=== PATIENT | female | born 2000 | race Caucasian/White ===

== ENCOUNTER 2020-05-03 19:32 | Emergency (ER) | payer OTHER, SELFPAY ==
--- NOTE | ~2020-05-03 | XR_ITS ---
EXAMINATION: XR abdomen/kub 1V DATE: 05/03/2020 21:12 INDICATION: Nausea and vomiting. TECHNIQUE: A supine view of the abdomen was obtained. COMPARISON: None. FINDINGS: There are no dilated loops of bowel. There is a 4 mm calcification in right abdomen overlyi ng the expected area of the proximal ureter. IMPRESSION: 1. 4 mm calcification in right abdomen overlying the expected area of the proximal ureter, which may be a ureteral stone or a phlebolith or a stool calcification. Reviewed, dictated and finalized at location A. IMPRESSION: 1. 4 mm calcification in right abdomen overlying the expected area of the proxi mal ureter, which may be a ureteral stone or a phlebolith or a stool calcificat ion.
--- NOTE | ~2020-05-03 | XR_ITS ---
EXAMINATION: XR chest 1V portable DATE: 05/03/2020 21:13 INDICATION: Nausea and vomiting. Overdose. TECHNIQUE: A single frontal view of the chest was obtained. COMPARISON: None. FINDINGS: The chest demonstrates clear lungs without pneumonia, pleural effusion, or pneumothorax. Th e heart size is normal. IMPRESSION: 1. No acute cardiopulmonary disease. Reviewed, dictated and finalized at location A.
[2020-05-03 19:32] VITALS: BP 132/81; PULSE 98; RESP 12; TEMP 37.3; O2SAT 100
[2020-05-03 19:40] VITALS: RESP 13
--- NOTE | 2020-05-03 19:52 | ECG_ITS ---
Measurements Intervals [place] Rate: 100 P: [place]: 0 QRS: 55 QRSD: 86 T: -40 QT: 328 QTc: 424 Interpretive Statements SINUS TACHYCARDIA WITH SINUS ARRHYTHMIA RSR' IN V1 OR V2, PROBABLY NORMAL VARIANT MINIMAL Q WAVES- INFERIOR LEADS ST-T WAVE ABNORMALITY IN INFERIOR LEADS- CONSIDER ISCHEMIA BASELINE ARTIFACT- I, II, AVR ABNORMAL ECG Electronically Signed On 05-03-2020 21:02:25 CDT by Clayton Marie D.O.
[2020-05-03 20:22] LABS: HCO3 VBG 20.6 mEq/l (24.0-30.0); PCO2 VBG 34.2 mmHg (42.0-48.0); PO2 VBG 35.2 mmHg (35.0-45.0)
[2020-05-03 20:23] LABS: Device ROOM AIR
[2020-05-03 20:25] LABS: Basophils Absolute Auto 0.05 K/mm3 (0.00-0.10); Basophils Percent Auto 0.4 % (0.0-1.0); Eosinophils Absolute Auto 0.04 K/mm3 (0.02-0.50); Eosinophils Percent Auto 0.4 % (1.0-6.0); Hematocrit 42.4 % (35.0-49.0); Hemoglobin 13.9 g/dL (12.0-15.0); Immature Granulocyte Absolute 0.04 K/mm3 (0.00-0.00); Immature Granulocyte Percent A 0.4 % (0.0-0.0); Lymphocytes Absolute Auto 0.67 K/mm3 (1.10-4.50); Lymphocytes Percent Auto 5.9 % (18.0-42.0); Mean Corpuscular HGB Conc 32.8 g/dL (32.0-36.0); Mean Corpuscular Hemoglobin 27.7 pg (27.0-31.0); Mean Corpuscular Volume 84.5 fL (78.0-102.0); Mean Platelet Volume 8.6 fl (9.2-11.8); Monocytes Percent Auto 3.5 % (2.0-11.0); Neutrophils Absolute Auto 10.2 K/mm3 (1.7-7.2); Neutrophils Percent Auto 89.4 % (50.0-70.0); Platelet Count Result 372 K/mm3 (150-420); Red Blood Count 5.02 M/mm3 (4.20-5.40); Red Cell Distribution Width 14.9 % (11.6-14.4); White Blood Count 11.4 K/mm3 (4.8-10.8)
[2020-05-03] MEDS: SODIUM CHLORIDE 0.9% IV 1,000 ML 999 ML IV CONT (20:30)
[2020-05-03 20:39] LABS: Add Urine Microscopic? YES; Appearance Urine Clear (Clear); Bilirubin Urine 1+ (Negative); Blood Urine 3+ (Negative); Color Urine Yellow (Yellow); Glucose Urine UA Negative (Negative); Ketones Urine 1+ (Negative); Leukocyte Esterase Ur Trace LEU/UL (Negative); Nitrate Urine Negative (Negative); Protein Urine 2+ (Negative); Specific Grav Ur >= 1.030 (1.010-1.020); pH Urine 5.5 (5.0-8.0)
[2020-05-03 20:40] LABS: INR 1.1; Partial Thromboplastin Time 24.8 SEC (22.3-31.6); Prothrombin Time 11.3 Seconds (9.64-11.0)
[2020-05-03 20:41] LABS: Alanine Aminotransferase 34 U/L (14-59); Albumin Level 4.7 g/dL (3.4-5.0); Alkaline Phosphatase 116 U/L (46-116); Anion Gap 18 mmol/L (8-16); Aspartate Amino Transferase 34 U/L (15-37); Bilirubin,Total 0.6 mg/dL (0.00-1.00); Blood Urea Nitrogen 11 mg/dL (7-18); Calcium 9.6 mg/dL (8.5-10.1); Carbon Dioxide 22 mmol/L (21-32); Chloride 104 mmol/L (98-108); Creatine Kinase 237 U/L (26-192); Estimated Glomerular Filt Rate > 60; Glucose 88 mg/dL (70-99); Osmolality Calculated 296 mOsm/kg (285-295); Potassium 3.4 mmol/L (3.5-5.1); Sodium 144 mmol/L (136-145); Total Protein 8.9 g/dL (6.4-8.2)
[2020-05-03 20:44] LABS: Acetaminophen 0 ug/mL (10-30); Ammonia 13 umol/L (11-32); Ethanol 87 mg/dL (0-6); Magnesium 1.6 mg/dL (1.8-2.4); Phosphorus 3.3 mg/dL (3.4-5.5); Salicylate 1.8 mg/dL (2.8-20.0)
--- NOTE | 2020-05-03 20:44 | ED.OVERDOSE ---
HPI - Overdose General Chief Complaint: Overdose Stated Complaint: AMB Time Seen by Provider: 05/03/20 19:40 Source: patient and EMS Mode of arrival: EMS Limitations: altered mental status History of Present Illness HPI Narrative: 19-year-old woman brought in to the emergency department by EMS after reportedly having taking 2 handfuls of iron pills. She states she vomited afterwards but only 3 pills came up. She states that she is having chest discomfort, nausea and does not feel well. EMS brought two empty prescription ferrous sulfate 325 mg bottles and stated that there was to [id number] iron pill bottles in the trash but they did not bring them. She denies taking any other medications however she has had that she took 3 alcoholic drinks. She states that she was not trying to hurt herself but took the medication after [facility] came and took her child. complaint: intentional overdose Time: 18:00 Intent: unwilling to say How Overdose Was Discovered: other ( someone other than the patient called 911.) Context: Intentional Overdose: relationship problems Context: Accidental Overdose: was drinking then took pills Associated symptoms: depression and nausea/vomiting Treatments Prior to Arrival: none Related Data Home Medications Medication Instructions Recorded Confirmed venlafaxine [Effexor XR] 37.5 mg PO DAILY 05/03/20 05/03/20 Allergies Allergy/AdvReac Type Severity Reaction Status Date / Time No Known Allergies Allergy Verified 05/03/20 20:34 Review of Systems Constitutional: Constitutional: Denies chills and Denies fever(s) Eyes: Eyes: Denies change in vision and Denies photophobia ENT: Denies dysphagia, Denies nasal congestion and Denies sore throat Cardiovascular: Cardiovascular: Reports chest pain and Denies radiating jaw, neck or arm pain Respiratory: Respiratory: Denies cough, Denies dyspnea and Denies wheezing Gastrointestinal: Gastrointestinal: Reports abdominal pain, Reports nausea and Reports vomiting Musculoskeletal: Musculoskeletal: Denies arthralgias and Denies joint swelling Integumentary/Breasts: Skin/Breast: Denies pruritus, Denies erythema and Denies rash Neurologic: Denies vertigo, Denies dizziness, Denies syncope and Reports weakness Hematologic/Lymphatic: Hematologic/Lymphatic: Denies easy bleeding and Denies easy bruising Allergic/Immunologic: Allergic/Immunologic: Denies lip swelling and Denies wheezing PMFSH Past Medical History Medical History Depression Social History Social History Smoking status: Current every day smoker Alcohol intake: current Substance use: current Substance use type: marijuana Living arrangements: with family Exam Const: General: no acute distress and alert Orientation/consciousness: patient oriented x3 Other: somewhat drowsy, no acute distress. HENMT: Head: normal to inspection Ears: external ears normal, TM's normal bilaterally and EAC's normal Face and sinus: normal facial exam Mouth: Yes moist mucous membranes Throat: posterior oropharynx normal Eyes: Conjunctivae: conjunctivae normal EOM: EOMs intact bilaterally Resp: Effort & Inspection: normal respiratory effort and not labored Auscultation: clear to auscultation bilaterally, no rales, no rhonchi and no wheezes Cardio: Rate: regular rate Rhythm: regular rhythm GI: Inspection: non-distended GI Palp: Yes Soft to palpation, No Tenderness to palpation present (GI), No Guarding due to palpation present (GI) and No Rigid due to palpation Skin: General skin exam: no jaundice and pallor Rashes: no rashes Neuro: General: patient oriented x3, moves all extremities, no focal motor deficits and CN's II-XI intact bilaterally Speech: normal speech Motor exam (neuro): 5/5 motor strength present throughout and No tremor noted Extrem: General: normal to inspection and no
[2020-05-03 20:47] LABS: Lactic Acid Reflex 3.5 mmol/L (0.4-2.0)
[2020-05-03 20:53] LABS: Bacteria Urine 1+ /hpf; RBC Urine >75 /hpf (0-2); Squamous Epithelial Cell Urine Moderate /hpf (Few); Triple Phosphate Crystal Urine Present /hpf
[2020-05-03 20:54] LABS: Amphetamine Screen Urine Negative (Negative); Barbiturate Screen Urine Negative (Negative); Benzodiazepines Screen Urine Negative (Negative); Cannabinoid Screen Urine Positive (Negative); Cocaine Screen Urine Negative (Negative); Methadone Screen Urine Negative (Negative); Opiate Screen Urine Negative (Negative); Phencyclidine Screen Urine Negative (Negative)
[2020-05-03 20:55] LABS: Iron 451 ug/dL (50-170)
[2020-05-03 20:56] LABS: Pregnancy On Board Control Positive; Urine Pregnancy Test Negative
--- NOTE | 2020-05-03 21:23 | PC.NURSE ---
KAREY AT [facility] CONTACTED AT 2008. RECOMMENDATIONS REPORTED TO ERP
--- NOTE | 2020-05-03 21:23 | PC.NURSE ---
ALBA AT [facility] CONTACTED AT [id number]. AWAITING CALL BACK
--- NOTE | 2020-05-03 21:35 | PC.NURSE ---
2134 DR. DOE, [employer] SUPERVISOR FROM [facility], CONTACTED [facility] FOR REPORT.
[2020-05-03 22:34] VITALS: BP 113/77; PULSE 95; RESP 14; O2SAT 100
--- NOTE | 2020-05-03 22:43 | PC.NURSE ---
UPDATE PROVIDED TO [facility] AT 2240 AND INFORMED OF PTS TRANSFER
[2020-05-03 23:16] LABS: Reflex Lactic Acid Yes or No Add Lactic
[2020-05-03 23:32] LABS: Troponin I < 0.02 ng/mL (0.00-0.056)
== END 2020-05-03 22:55 | disposition short-term general hospital (02) ==
PROVIDERS: Emergency Provider Emergency Medicine
DX: T50.904A Poisoning by unspecified drugs, medicaments and biological substances, undetermined, initial encounter (principal); T45.4X4A Poisoning by iron and its compounds, undetermined, initial encounter
CPT/HCPCS: 36415; 71045; 74018; 80053; 80307; 81001; 81025; 82140; 82550; 82803; 83540; 83605; 83735; 83930; 84100; 84484; 85025; 85610; 85730; 86850; 86880; 86900; 86901; 86902; 93005; 96360; 96361; 99285; J7030